=== PATIENT | female | born 2000 | race Two or more races ===

== ENCOUNTER 2023-07-15 01:35 | Emergency (ER) | payer OTHER ==
[~2023-07-15] VITALS: Ht 157.5 cm; Wt 84.1 kg
[2023-07-15 01:48] VITALS: BP 121/72; PULSE 76; RESP 18; TEMP 98.4
== END 2023-07-15 03:00 | disposition left against medical advice (07) ==
LOC: EMS 01:35
DX: R10.13 Epigastric pain (principal); Z53.21 Procedure and treatment not carried out due to patient leaving prior to being seen by health care provider
CPT/HCPCS: 99281; Z7502